=== PATIENT | female | born 1945 | race African-American/Black ===

== ENCOUNTER → 2016-05-27 | Day surgery (SDC) | payer OTHER ==
[~2016-05-27] VITALS: Ht 168.9 cm; Wt 64.9 kg
[~2016-05-27] MED LIST: Atropine Inj 1mg/10ml Syr IV PRN; BSS 15ml BTL ONE; BSS 500ml btl ONE; Bupivacaine 0.75% 30ml vial INJ ONE; Cyclopentolate 1% Opth Sol RIGHT EYE SCH; Dexamethasone 4mg/ml vial ONE; DiphenhydrAMINE 50mg/ml Inj IVP PRN; EPINEPHrine 1mg/1ml Amp ONE; Goniosol 2.5% Opth Soln - 15ml ONE; HYDROCHLOROTHIA25 MG ORAL; Kenalog-40 1ml Vial ONE; Ketorolac 30mg Inj IV PRN; Ketorolac 60mg Inj IV PRN; LEVOTHYROXINE75 MCG ORAL; LORazepam Inj 2mg/ml 1ml IV PRN; LR 1000ml 1,000 ML IVLG SCH; LR 1000ml ONE; Labetalol 5mg/ml 20ml vial IV PRN; Lidocaine 1% MPF 10mg/ml 5ml ONE; Lidocaine 2% MPF 5ml Vial INJ ONE; Maxitrol Opth Susp 5ml ONE; Meperidine 25mg/ml Inj IV PRN; Metoclopramide 10mg/2ml Inj IVP PRN; Midazolam 2mg/2ml Inj IVP PRN; Midazolam 2mg/2ml Inj ONE; NS Irrig 1000ml ONE; Phenylephrine 2.5% Op Soln RIGHT EYE SCH; Povidone-Iodine 5% opth solution ONE; Propofol 10mg/ml 20ml IV ONE; Sterile Water Irrig 1000ml IRRIG ONE; Tetracaine 0.5% Opth Soln ONE; fentaNYL 100 mcg/2 mL IV PRN
[2016-05-27] MEDS: Phenylephrine 2.5% Op Soln RIGHT EYE SCH ×3 (12:05→12:34)
[2016-05-27] MEDS: Cyclopentolate 1% Opth Sol RIGHT EYE SCH ×3 (12:06→12:34)
[2016-05-27 12:31] VITALS: BP 135/76
[2016-05-27 12:38] LABS: BASOPHILS % (AUTO) 1.6 % (0.0-2.0); EOSINOPHILS % (AUTO) 4.3 % (0.0-3.0); LYMPHOCYTES % (AUTO) 38.2 % (20.0-45.0); MEAN CORPUSCULAR HEMOGLOBIN 29.5 PG (27.0-31.0); MEAN CORPUSCULAR VOLUME 95 FL (80-99); MONOCYTES % (AUTO) 8.7 % (1.0-10.0); NEUTROPHILS % (AUTO) 47.2 % (45.0-75.0); PLATELET COUNT 192 K/UL (150-450); RED BLOOD COUNT 4.25 M/UL (4.20-5.40); RED CELL DISTRIBUTION WIDTH 12.2 % (11.6-14.8); WHITE BLOOD COUNT 4.5 K/UL (4.8-10.8)
[2016-05-27 12:53] LABS: ANION GAP 16 (5-15); CALCIUM 9.6 mg/dL (8.6-10.2); CARBON DIOXIDE 24 mEQ/L (20-30); CHLORIDE 99 mEQ/L (98-107); HEMOLYSIS 71; POTASSIUM 4.6 mEQ/L (3.4-4.9); SODIUM 139 mEQ/L (135-145)
--- NOTE | 2016-05-27 13:25 | Pre-Procedure Note/Attestation ---
Pre-Procedure Note/Attestation Complete Prior to Procedure Planned Procedure: right Procedure Narrative: 23G PPV/PPL/EL right eye Indications for Procedure Pre-Operative Diagnosis: retained lens fragments right eye Attestation I attest that I discussed the nature of the procedure; its benefits; risks and complications; and alternatives (and the risks and benefits of such alternatives ), prior to the procedure, with the patient (or the patient's legal business development representative). I attest that, if there was a reasonable possibility of needing a blood transfusion, the patient (or the patient's legal business development representative) was given the [facility] standardized written summary, pursuant to the Art Gillian Blood Safety Act ([place] Health and Safety Code # 1645, as amended). I attest that I re-evaluated the patient just prior to the surgery and that there has been no change in the patient's H&P, except as documented below: ANDERS AVENDAÑO M.D. May 27, 2016 13:25
--- NOTE | 2016-05-27 14:10 | Anethesia Preoperative Eval ---
Anesthesia Pre-op PMH/ROS General Date of Evaluation: May 27, 2016 Time of Evaluation: 12:50 Anesthesiologist: Conor ASA Score: ASA 2 Mallampati Score Class I : Soft palate, uvula, fauces, pillars visible Class II: Soft palate, uvula, fauces visible Class III: Soft palate, base of uvula visible Class IV: Only hard plate visible Mallampati Classification: Class II Surgeon: Daniel Diagnosis: Retained Lens Material L Eye Surgical Procedure: Vitrectomy OS Anesthesia History: none Family History: no anesthesia problems Allergies: Coded Allergies: CODEINE (Verified Allergy, Severe, Rash/Hives /Itching , 05/27/16) SULFA (SULFONAMIDE ANTIBIOTICS) (Verified Allergy, Severe, Rash/Hives, ) ACETAMINOPHEN (Verified Adverse Reaction, Severe, Nausea/Vomiting, 05/27/16 ) HYDROCODONE (Verified Adverse Reaction, Severe, Nausea/Vomiting, 05/27/16) Medications: see eMAR Past Medical History Endocrine: Reports: hypothyroidism HEENT: Reports: cataract (L), cataract (R) PSxH Narrative: R Cataract Anesthesia Pre-op Phys. Exam Physician Exam Last Vital Signs Date Time Temp Pulse Resp B/P Pulse Ox O2 Delivery O2 Flow Rate FiO2 05/27/16 12:31 98.1 55 20 135/76 98 Room Air Constitutional: NAD Neurologic: CN 2-12 intact Cardiovascular: RRR Respiratory: CTA Gastrointestinal: S/NT/ND Airway Exam Mallampati Score: Class II MO: full ROM: limited Teeth: intact Anesthesia Pre-op A/P Labs Hematology Test 05/27/16 12:25 White Blood Count 4.5 K/UL (4.8-10.8) L Red Blood Count 4.25 M/UL (4.20-5.40) Hemoglobin 12.5 G/DL (12.0-16.0) Hematocrit 40.4 % (37.0-47.0) Mean Corpuscular Volume 95 FL (80-99) Mean Corpuscular Hemoglobin 29.5 PG (27.0-31.0) Mean Corpuscular Hemoglobin Concent 31.0 G/DL (32.0-36.0) L Red Cell Distribution Width 12.2 % (11.6-14.8) Platelet Count 192 K/UL (150-450) Mean Platelet Volume 12.0 FL (6.5-10.1) H Neutrophils (%) (Auto) 47.2 % (45.0-75.0) Lymphocytes (%) (Auto) 38.2 % (20.0-45.0) Monocytes (%) (Auto) 8.7 % (1.0-10.0) Eosinophils (%) (Auto) 4.3 % (0.0-3.0) H Basophils (%) (Auto) 1.6 % (0.0-2.0) Chemistry Test 05/27/16 12:25 Sodium Level 139 mEQ/L (135-145) Potassium Level 4.6 mEQ/L (3.4-4.9) Chloride Level 99 mEQ/L (98-107) Carbon Dioxide Level 24 mEQ/L (20-30) Anion Gap 16 (5-15) H Blood Urea Nitrogen 21 mg/dL (7-23) Creatinine 1.0 mg/dL (0.5-0.9) H Estimat Glomerular Filtration Rate mL/min (>60) Glucose Level 88 mg/dL (74-106) Calcium Level 9.6 mg/dL (8.6-10.2) Risk Assessment & Plan Assessment: ASA 3 Plan: GA Status Change Before Surgery: Terry Hutchison MD May 27, 2016 14:10
--- NOTE | 2016-05-27 14:16 | Immediate Post-Op Evaluation ---
Immediate Post-Op Evalulation Immediate Post-Op Evalulation Procedure: Vitrectomy OS Date of Evaluation: May 27, 2016 Time of Evaluation: 14:50 IV Fluids: 600 LR Blood Products: 0 Estimated Blood Loss: 1 Urinary Output: 0 Blood Pressure Systolic: 137 Blood Pressure Diastolic: 76 Pulse Rate: 65 Respiratory Rate: 16 O2 Sat by Pulse Oximetry: 100 Temperature (Fahrenheit): 97.2 Pain Score (1-10): 1 Nausea: No Vomiting: No Complications 0 Patient Status: awake, reacts, patent, none Hydration Status: adequate Terry Perdomo MD May 27, 2016 14:16
--- NOTE | 2016-05-27 14:17 | 48 Hour Post Anesthesia Eval ---
Post Anesthesia Evaluation Procedure: Vitrectomy OS Date of Evaluation: May 27, 2016 Time of Evaluation: 17:09 Blood Pressure Systolic: 132 0: 74 Pulse Rate: 67 Respiratory Rate: 18 Temperature (Fahrenheit): 98.6 O2 Sat by Pulse Oximetry: 100 Airway: patent Nausea: No Vomiting: No Pain Intensity: 0 Hydration Status: adequate Cardiopulmonary Status: stable Mental Status/LOC: patient returned to baseline Follow-up Care/Observations: 0 Post-Anesthesia Complications: 0 Follow-up care needed: ready to discharge Terry Perdomo MD May 27, 2016 14:17
[2016-05-27 14:49] VITALS: BP 137/76
--- NOTE | 2016-05-27 14:52 | Brief Operative Note ---
Immediate Post Operative Note Operative Note Chief Complaint: blurred vision right eye Pre-op Diagnosis: retained lens fragments right eye Procedure: 23G PPV/PPL/EL right eye Post-op Diagnosis: retained lens fragments right eye Post-op Diagnosis: same as pre-op Findings: consistent w/pre-op dx studies Surgeon: Daniel Anesthesia: local Specimen: none Complications: none Condition: stable Fluids: minimal Estimated Blood Loss: none Drains: none Implant(s) used?: No ANDERS AVENDAÑO M.D. May 27, 2016 14:52
[2016-05-27 14:54] VITALS: BP 146/66
[2016-05-27 15:00] VITALS: BP 142/75
[2016-05-27 15:49] VITALS: BP 138/72
--- NOTE | 2016-05-27 20:59 | Operative Note - Dictated ---
DATE OF OPERATION: 05/27/2016 SURGEON: Tomer Sanchez M.D. PREOPERATIVE DIAGNOSIS: Retained lens fragments, right eye. POSTOPERATIVE DIAGNOSIS: Retained lens fragments, right eye. NAME OF OPERATION: A 23-gauge pars plana vitrectomy, pars plana lensectomy, endolaser, right eye. ANESTHESIA: Local. BLOOD LOSS: None. COMPLICATIONS: None. INDICATIONS: The patient is a 71-year-old female with a history of blurred vision in the right eye. She presents with retained lens fragments, following cataract surgery as well as elevated intraocular pressure. The findings were discussed with the patient as well as the risks, benefits, and alternatives to the above-named procedure and the patient wishes to proceed with surgery. The patient understands that the risks include, but are not limited to, loss of vision and loss of the eye. Informed consent was obtained. DESCRIPTION OF THE PROCEDURE: On the day of the procedure, the right eye was noted to be the operative eye and marked. The patient received three sets of the standard preoperative eye drops in the holding area. The patient was then brought to the operating room with appropriate anesthesia and monitors were placed. The right eye was again identified as the operative eye during time-out. The nonoperative eye was patched and shielded. The operative eye was then prepped and draped in the usual sterile fashion ophthalmic fashion. A lid speculum was placed in the operative eye. A 23-gauge cannulas were placed with infusion located inferotemporally. A standard three port pars plana vitrectomy was then performed. A posterior vitreous detachment was induced with the vitreous cutter and the vitreous skirt was trimmed. No retinal breaks or tears were noted. Endolaser was applied in 360 degree barricade fashion to the periphery. The retained lens fragments were removed during the vitrectomy. Kenalog was then used to check for any vitreous in the anterior chamber and there was none. The intraocular forceps were then used to remove the residual capsular fragments. A 23-gauge cannulas were then removed. The supranasal port sclerotomy was sutured using 7-0 Vicryl. The wounds were checked for leakage and found to be watertight. The intraocular pressure was palpated and found to be within normal limits. The patient then received subconjunctival injections of Ancef and dexamethasone. The lid speculum and drapes were then removed. Maxitrol ointment and atropine eye drops were applied to the eye. The eye was patched and shielded. The patient tolerated the procedure well and was returned to the postoperative care area in good condition. Tomer Sanchez M.D. DR: GUERRERO JOB#: [id number] CC:
== END | disposition home or self-care (01) ==
LOC: SUR 10:38
DX: H59.021 Cataract (lens) fragments in eye following cataract surgery, right eye (principal); Y83.8 Other surgical procedures as the cause of abnormal reaction of the patient, or of later complication, without mention of misadventure at the time of the procedure; Y92.89 Other specified places as the place of occurrence of the external cause; E03.9 Hypothyroidism, unspecified; J30.9 Allergic rhinitis, unspecified; K21.9 Gastro-esophageal reflux disease without esophagitis; D64.9 Anemia, unspecified; B00.9 Herpesviral infection, unspecified; I10 Essential (primary) hypertension; M85.80 Other specified disorders of bone density and structure, unspecified site; Z87.891 Personal history of nicotine dependence; Z88.5 Allergy status to narcotic agent; Z88.2 Allergy status to sulfonamides
CPT/HCPCS: 36415; 67039; 80048; 85025; J0171; J0690; J1100; J2250; J2704; J3301; J3490; J7120; 94003; 94150